=== PATIENT | male | born 1960 | race Caucasian/White ===

== ENCOUNTER 2017-07-16 04:06 | Emergency (ER) | payer OTHER ==
[~2017-07-16] VITALS: Ht 182.9 cm; Wt 81.7 kg
[~2017-07-16 04:06] MED LIST: CHILD ASPIRIN81 M1 PO; LIPITOR20 MG PO; PERCOCET 5/31 TABLET PO; PRILOSEC OTC20 MG PO
[2017-07-16] MEDS ORDERED: VALIUM5 MG PO (05:20)
[2017-07-16] MEDS ORDERED: INDOCIN50 MG PO (05:20)
[2017-07-16] MEDS ORDERED: NORCO 7.5/321 TABLET PO (05:20)
[2017-07-16 05:33] VITALS: BP 145/81
== END 2017-07-16 05:34 | disposition home or self-care (01) ==
LOC: EME 04:06
DX: M62.838 Other muscle spasm (principal); F17.200 Nicotine dependence, unspecified, uncomplicated
CPT/HCPCS: 99281; 99284; J1885

== ENCOUNTER 2017-10-10 21:33 | Emergency (ER) | payer BC ==
[~2017-10-10] VITALS: Ht 180.3 cm; Wt 81.1 kg
[~2017-10-10 21:33] MED LIST changes: +INDOCIN50 MG PO; +NORCO 7.5/321 TABLET PO; +VALIUM5 MG PO
[2017-10-11] MEDS ORDERED: PERCOCET 5/31 TABLET PO (00:54)
[2017-10-11] MEDS ORDERED: NORCO 5/3251 TABLET PO (01:22)
[2017-10-11 01:27] VITALS: BP 126/81
== END 2017-10-11 01:31 | disposition home or self-care (01) ==
LOC: EME 21:33
DX: T15.01XA Foreign body in cornea, right eye, initial encounter (principal); X58.XXXA Exposure to other specified factors, initial encounter; Y93.89 Activity, other specified; Z88.1 Allergy status to other antibiotic agents
CPT/HCPCS: 99281; 99284